=== PATIENT | male | born 1995 | race Two or more races ===

== ENCOUNTER 2021-11-06 22:48 | Emergency (ER) | payer SELFPAY ==
[~2021-11-06] VITALS: Ht 170.2 cm; Wt 72.3 kg
--- NOTE | 2021-11-06 23:05 | PHYS DOC ---
General Adult EDM: Chief Complaint: ASTHMA HPI: HPI: Patient is a 26 year old male with history of asthma presenting to the ED today complaining of shortness of breath that has been going on intermittently today. Patient states he ran out of his inhaler a week ago. Denies any fever. Chest pain. Denies any previous history of intubation from severe asthma. Review of Systems: Review of Systems: Constitutional: Denies fever or chills. [] HENT: Denies nasal congestion or sore throat. [] Respiratory: Reports shortness of breath Cardiovascular: Denies chest pain or edema. [] GI: Denies abdominal pain, nausea, vomiting, bloody stools or diarrhea. [] : Denies dysuria. [] Musculoskeletal: Denies back pain or joint pain. [] Integument: Denies rash. [] Neurologic: Denies headache, focal weakness or sensory changes. [] Psychiatric: Denies depression or anxiety. [] Heart Score: C/O Chest Pain: N/A Risk Factors: Risk Factors: DM, Current or recent (<one month) smoker, HTN, HLP, family history of CAD, obesity. Risk Scores: Score 0 - 3: 2.5% MACE over next 6 weeks - Discharge Home Score 4 - 6: 20.3% MACE over next 6 weeks - Admit for Clinical Observation Score 7 - 10: 72.7% MACE over next 6 weeks - Early Invasive Strategies Physical Exam: PE: Constitutional: Well developed, well nourished, no acute distress, non-toxic appearance. [] HENT: Normocephalic, atraumatic, bilateral external ears normal, oropharynx moist, no oral exudates, nose normal. [] Eyes: PERRLA, EOMI, conjunctiva normal, no discharge. [] Neck: Normal range of motion, no tenderness, supple, no stridor. [] Cardiovascular: Tachycardic Lungs & Thorax: Tight chest, slight wheezing to upper lung bases Abdomen: Bowel sounds normal, soft, no tenderness, no masses, no pulsatile masses. [] Skin: Warm, dry, no erythema, no rash. [] Back: No tenderness, no CVA tenderness. [] Extremities: No tenderness, no cyanosis, no clubbing, ROM intact, no edema. [] Neurologic: Alert and oriented X 3, normal motor function, normal sensory function, no focal deficits noted. [] Psychologic: Affect normal, judgement normal, mood normal. [] EKG: EKG: [] Radiology/Procedures: Radiology/Procedures: [] Course & Med Decision Making: Course & Med Decision Making Pertinent Labs and Imaging studies reviewed. (See chart for details) This a 26-year-old male patient with history of asthma presenting to the ED today with complaints of shortness of breath due to his asthma, symptoms have been going on intermittently today. He ran out of his inhaler a week ago. Vitals on arrival to the ED temperature 98.2, heart rate 109, O2 sats 91% on room air, respiration 18, blood pressure 121/56. Patient was given breathing treatment in the ED, given prednisone. Significant improvement on his breathing, lungs cleared up. O2 sats are 95% and above on room air. D/c to home. RX for inhaler and prednisone provided. F/u with PCP in the course of this week Ana Rosa Disclaimer: Ana Rosa Disclaimer: This electronic medical record was generated, in whole or in part, using a voice recognition dictation system. Departure Departure Impression: Primary Impression: Asthma exacerbation Qualified Codes: J45.21 - Mild intermittent asthma with (acute) exacerbation Disposition: HOME / SELF CARE / HOMELESS Condition: STABLE Patient Instructions: Asthma, Adult, [id number] Additional Instructions: You were evaluated in the emergency room for asthma exacerbation. Use your inhaler and prednisone as ordered. Please follow-up with your doctor in 1 to 2 weeks. Come back to the ED at any point symptoms worsen Scripts Albuterol Sulfate (Proair Respiclick) 90 Mcg [email or web address] 2 PUFF IH PRN Q4-6HRS PRN for shortness of breath, #1 INHALER 0 Refills Prov: DANIELLA DODSON APRN 11/06/21 Prednisone (PREDNISONE) 50 Mg Tablet 1 TAB PO DAILY, #5 TAB Prov: DANIELLA DODSON DRUG SAFETY PHYSICIAN 11/06/21 DANIELLA DODSON DRUG SAFETY PHYSICIAN Nov 06, 2021 23:05
[2021-11-06] MEDS ORDERED: IPRATRPIUM/ALBUTEROL 0.5/2.5MG 3 ML NEBU. NEB ONE (23:15)
[2021-11-06] MEDS ORDERED: predniSONE 20 MG TABLET PO ONE (23:15)
[2021-11-06] MEDS ORDERED: PROAIR RESPICL90 MCG IH (23:54)
[2021-11-06] MEDS ORDERED: PRED50TA PO (23:54)
[2021-11-07 00:15] VITALS: BP 121/54
== END 2021-11-07 00:39 | disposition home or self-care (01) ==
LOC: ER 22:48
DX: J45.21 Mild intermittent asthma with (acute) exacerbation (principal)
CPT/HCPCS: 94640; 99283; J7512